=== PATIENT | female | born 1985 | race Caucasian/White ===

== ENCOUNTER 2021-05-06 18:01 | Emergency (ER) | payer SELFPAY ==
[~2021-05-06] VITALS: Ht 154.9 cm; Wt 90.9 kg
[~2021-05-06 18:01] MED LIST: ALBU8.5H8 IH; RIVA20TA PO
[2021-05-06 19:05] VITALS: BP 157/86
[2021-05-06] MEDS ORDERED: CLOT15CR29 TP (19:11)
[2021-05-06] MEDS ORDERED: TRIA15CR49 TP (19:11)
[2021-05-06] MEDS ORDERED: PERM60CR19 TP (19:11)
[2021-05-08] MEDS ORDERED: CLOT15CR29 TP (15:06)
[2021-05-08] MEDS ORDERED: PERM60CR19 TP (15:06)
[2021-05-08] MEDS ORDERED: TRIA15CR49 TP (15:06)
== END 2021-05-06 19:45 | disposition home or self-care (01) ==
LOC: EMS 18:03
DX: R21 Rash and other nonspecific skin eruption (principal); Z88.6 Allergy status to analgesic agent; Z88.8 Allergy status to other drugs, medicaments and biological substances; Z79.899 Other long term (current) drug therapy
CPT/HCPCS: 99282; Z7502

== ENCOUNTER 2022-06-09 11:47 | Emergency (ER) | payer SELFPAY ==
[~2022-06-09] VITALS: Ht 160 cm; Wt 97.7 kg
[~2022-06-09 11:47] MED LIST changes: +CLOT15CR29 TP; +PERM60CR19 TP; +TRIA15CR49 TP
[2022-06-09 11:49] VITALS: BP 143/97
[2022-06-09] MEDS ORDERED: TRIA15CR49 TP ×2 (13:41→13:52)
== END 2022-06-09 13:58 | disposition home or self-care (01) ==
LOC: EMS 11:47
DX: R21 Rash and other nonspecific skin eruption (principal); B35.6 Tinea cruris; J45.909 Unspecified asthma, uncomplicated; Z90.49 Acquired absence of other specified parts of digestive tract; Z98.890 Other specified postprocedural states; Z88.6 Allergy status to analgesic agent; Z88.8 Allergy status to other drugs, medicaments and biological substances
CPT/HCPCS: 99283; Z7502